=== PATIENT | female | born 1995 | race Caucasian/White ===

== ENCOUNTER 2018-10-05 05:39 | Emergency (ER) | payer OTHER ==
[2018-10-05 06:20] VITALS: TEMP 99.8; O2SAT 97
--- NOTE | 2018-10-05 08:30 | RAD ---
EXAM DESCRIPTION: Chest,2 Views CLINICAL HISTORY: 23 years Female, coughing COMPARISON: None. IMPRESSION: Heart size and pulmonary vascularity are within normal limits. Somewhat limited evaluation due to low inspiratory volumes. There is no confluent airspace consolidation, pleural effusion, or pneumothorax. No acute osseous abnormality. Electronically signed by: Ross Hernandez MD 10/05/2018 8:29 AM CVIR TECH
[2018-10-05] MEDS ORDERED: ONDANSETRON ODT 8 MG TAB SL ONE (08:42)
[2018-10-05] MEDS ORDERED: ACETAMINOPHEN 325 MG TAB PO ONE (08:42)
--- NOTE | 2018-10-05 08:46 | ED.PDOC ---
History of Present Illness - General Chief Complaint: Respiratory Problem Stated Complaint: cough/stuffy nose, rash x's 1 month Time Seen by Provider: 10/05/18 06:37 Source: patient Exam Limitations: no limitations - History of Present Illness Initial Comments: he patient is a 23-year-old female presenting to emergency room secondary to cough for the last few days that is mildly productive. Mild wheezing. She has also had a mild rash in areas that she can scratch for the last 3 weeks. She does have very significant dry skin. No shortness of breath. No overt fever. She does have a mild runny nose. Mild sore throat. She does also have some very fine rails to the left upper lobe primarily. She does have mild scattered rhonchi. Timing/Duration: other Improving Factors: nothing Worsening Factors: nothing Associated Symptoms: cough Allergies/Adverse Reactions: Allergies NO KNOWN ALLERGY Allergy (Verified 10/05/18 06:20) Home Medications: Ambulatory Orders Azithromycin 500 mg PO DAILY #5 tab 10/05/18 predniSONE [Prednisone] 20 mg PO DAILY #5 tab 10/05/18 Review of Systems - Review of Systems Constitutional: States: no symptoms reported EENTM: States: nose congestion, throat pain Respiratory: States: cough Cardiology: States: no symptoms reported Gastrointestinal/Abdominal: States: no symptoms reported Genitourinary: States: no symptoms reported Musculoskeletal: States: no symptoms reported Skin: States: see HPI Neurological: States: no symptoms reported Endocrine: States: no symptoms reported All other Systems: No Change from Baseline Past Medical History (General) - Patient Medical History Hx Seizures: No Hx Stroke: No Hx Dementia: No Hx Asthma: No Hx of COPD: No Hx Cardiac Disorders: No Hx Congestive Heart Failure: No Hx Pacemaker: No Hx Hypertension: No Hx Thyroid Disease: No Hx Diabetes: No Hx Gastroesophageal Reflux: No Hx Renal Disease: No Hx Cancer: No Hx of HIV: No Hx Hepatitis C: No Hx MRSA: No Surgical History: no surgical history - Vaccination History Hx Tetanus, Diphtheria Vaccination: No Hx Influenza Vaccination: No - Social History Hx Tobacco Use: Yes Hx Alcohol Use: Yes Family Medical History - Family History Mother Living Status: Still Living Physical Exam - Physical Exam General Appearance: Alert, Comfortable, No apparent distress Eye Exam: bilateral normal Ears, Nose, Throat: hearing grossly normal, normal pharynx, nasal congestion Neck: full range of motion, supple Respiratory: chest non-tender, no respiratory distress, no accessory muscle use, other - see history of present illness Cardiovascular/Chest: normal peripheral pulses, regular rate, rhythm, no edema Peripheral Pulses: radial,right: 2+, radial,left: 2+ Gastrointestinal/Abdominal: non tender, soft Rectal Exam: deferred Back Exam: normal inspection, no CVA tenderness, no vertebral tenderness Extremity: normal range of motion, non-tender, normal inspection, no pedal kamran ma, normal capillary refill 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 She has small scabbed over areas where she has been scratching. No vesicles or pustules otherwise. No evidence of any purpura. No evidence of any psoriasis at this time. Comments: Vital Signs - 24 hr 10/05/18 05:55 Temperature 99.8 F H Pulse Rate [ 115 H monitor] Respiratory 18 Rate Blood Pressure 122/97 [Left Arm] O2 Sat by Pulse 97 Oximetry Progress - Progress Progress: 10/05/18 08:46 the patient is a 23-year-old female presenting to emergency room with 2 issues. The first appears to be at least moderate bronchitis. For this she is going to be placed on azithromycin for 5 days and prednisone for 5 days. She additionally does have significant dry skin and significant pruritus. She is going to be placed on the prednisone for this as well. She needs to obtain Eucerin cream or Cetaphil cream and apply this copiously to her dry skin 2-3 times daily. This should help. Additionally she can take a Zyrtec each night for the next 2 weeks. She needs to keep herself well hydrated his urine did show some mild dehydration. ER warnings were given for any significant worsening. She needs to try to avoid scratching. She needs to avoid work for at least the next 2 days and she is contagious from the respiratory standpoint. Keep routine follow up with primary care doctor otherwise. - Results/Orders Results/Orders: 10/05/18 07:18 STREP A SCREEN CULTURE Stat 10/05/18 08:43 INFLUENZA A & B BY PCR Stat result is negative GROUP A STREP SCREEN, RAPID Stat result is negative Chest x-ray shows no focal pneumonia. Laboratory Results - last 24 hr 10/05/18 10/05/18 10/05/18 06:47 06:48 07:18 Urine Color Yellow Urine Appearance Cloudy Urine pH 5.5 Ur Specific [place] >= 1.030 Urine Protein Trace Urine Glucose (UA) Negative Urine Ketones Trace Urine Blood Negative Urine Nitrite Negative Urine Bilirubin Negative Urine Urobilinogen 0.2 Ur Leukocyte Esterase Negative Urine RBC 0 Urine WBC 0-1 Ur Epithelial Cells 0-1 Amorphous Sediment 4+ Urine Bacteria 0 Urine Mucus Trace Urine HCG, Qual Negative Group A Strep Rapid Negative Departure - Departure Clinical Impression: Dermatitis, dyshidrotic, Dry skin dermatitis, Mild dehydration Acute bronchitis Qualifiers: Bronchitis organism: unspecified organism Qualified Code(s): J20.9 - Acute bronchitis, unspecified Disposition: Discharge to Home or Self Care Condition: Fair Departure Forms: ED Discharge - Pt. Copy, Patient Portal Self Enrollment Instructions: Eczema (Atopic Dermatitis), Acute Bronchitis, Adult (DC) Diet: regular diet Activity: increase activity as tolerated Prescriptions: Azithromycin 500 mg PO DAILY #5 tab predniSONE [Prednisone] 20 mg PO DAILY #5 tab Home Medications: Ambulatory Orders Azithromycin 500 mg PO DAILY #5 tab 10/05/18 predniSONE [Prednisone] 20 mg PO DAILY #5 tab 10/05/18 Additional Instructions: the patient is a 23-year-old female presenting to emergency room with 2 issues. The first appears to be at least moderate bronchitis. For this she is going to be placed on azithromycin for 5 days and prednisone for 5 days. She additionally does have significant dry skin and significant pruritus. She is going to be placed on the prednisone for this as well. She needs to obtain Eucerin cream or Cetaphil cream and apply this copiously to her dry skin 2-3 times daily. This should help. Additionally she can take a Zyrtec each night for the next 2 weeks. She needs to keep herself well hydrated his urine did show some mild dehydration. ER warnings were given for any significant worsening. She needs to try to avoid scratching. She needs to avoid work for at least the next 2 days and she is contagious from the respiratory standpoint. Keep routine follow up with primary care doctor otherwise.
[2018-10-05 09:03] VITALS: BP 132/65
== END 2018-10-05 09:01 | disposition home or self-care (01) ==
LOC: ER 05:39
DX: J20.9 Acute bronchitis, unspecified (principal); E86.0 Dehydration; L30.1 Dyshidrosis [pompholyx]; L85.3 Xerosis cutis

== ENCOUNTER 2019-02-15 12:34 | Emergency (ER) | payer OTHER ==
[2019-02-15 12:48] VITALS: TEMP 98.8
--- NOTE | 2019-02-15 13:03 | ED.PDOC ---
History of Present Illness - General Chief Complaint: Skin/Abrasion/Tear Stated Complaint: rash Time Seen by Provider: 02/15/19 12:56 Source: patient Exam Limitations: no limitations - History of Present Illness Initial Comments: PT THINKS SHE CAUGHT SCABIES FROM ANOTHER RESIDENT, WHO HAS IT. 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 PRESENT 3 D. PRURITIC. L ANTECUBITAL FOSSA AND L AXILLA. HAD SIMILAR 3 MOS AGO OF ABD, BACK, LEGS, WHICH WERE SUCCESSFULLY TX AND RESOLVED. Timing/Duration: constant Severity: moderate Location: extremities Improving Factors: nothing Worsening Factors: nothing Associated Symptoms: change in skin texture, itching, rash Allergies/Adverse Reactions: Allergies NO KNOWN ALLERGY Allergy (Verified 02/15/19 12:48) Home Medications: Ambulatory Orders Permethrin 5% [Elimite] 60 gm TOP DAILY #1 tube 02/15/19 Review of Systems - Review of Systems Constitutional: States: no symptoms reported EENTM: States: no symptoms reported Respiratory: States: no symptoms reported Cardiology: States: no symptoms reported Gastrointestinal/Abdominal: States: no symptoms reported Genitourinary: States: no symptoms reported Musculoskeletal: States: no symptoms reported Skin: States: see HPI, rash Neurological: States: no symptoms reported Endocrine: States: no symptoms reported Hematologic/Lymphatic: States: no symptoms reported All other Systems: Reviewed and Negative Past Medical History (General) - Patient Medical History Hx Seizures: No Hx Stroke: No Hx Dementia: No Hx Asthma: No Hx of COPD: No Hx Cardiac Disorders: No Hx Congestive Heart Failure: No Hx Pacemaker: No Hx Hypertension: No Hx Thyroid Disease: No Hx Diabetes: No Hx Gastroesophageal Reflux: No Hx Renal Disease: No Hx Cancer: No Hx of HIV: No Hx Hepatitis C: No Hx MRSA: No - Vaccination History Hx Tetanus, Diphtheria Vaccination: No Hx Influenza Vaccination: No - Social History Hx Tobacco Use: Yes Hx Alcohol Use: Yes - daily - Female History Patient is a Female of Child Bearing Age (10 -59 yrs old): Yes Patient : No Family Medical History - Family History Mother Living Status: Still Living Physical Exam - Physical Exam General Appearance: Alert, No apparent distress Eyes, Ears, Nose, Throat Exam: PERRL/EOMI, normal ENT inspection Neck: non-tender, normal inspection Cardiovascular/Chest: regular rate, rhythm, no murmur Respiratory: no respiratory distress, no accessory muscle use Gastrointestinal/Abdominal: non tender, soft Back Exam: normal inspection Extremity: normal range of motion, other - SEE DERM EXAM. Neurologic: no motor/sensory deficits, alert, normal mood/affect Skin Exam: other - L AXILLA AND L ANTECUBITAL FOSSA - NUMEROUS SMALL, DISCRETE, ERYTHEMATOUS CRUSTS, EXCORIATED. POS BURROWS IN SERPIGINOUS LINES Skin Problem Location: upper extremities Skin Character: lesion, rash Lymphatic: no adenopathy Departure - Departure Clinical Impression: Scabies, H/O scabies, Pruritic rash Disposition: Discharge to Home or Self Care Condition: Good Departure Forms: ED Discharge - Pt. Copy, Patient Portal Self Enrollment Instructions: Scabies (DC) Diet: resume usual diet Activity: increase activity as tolerated Prescriptions: Permethrin 5% [Elimite] 60 gm TOP DAILY #1 tube Home Medications: Ambulatory Orders Permethrin 5% [Elimite] 60 gm TOP DAILY #1 tube 02/15/19 Additional Instructions: As discussed, please inform your co-workers and residents to please be seen by for similar skin evaluation and appropriate treatment.
[2019-02-15 13:40] VITALS: BP 112/77; O2SAT 98
== END 2019-02-15 13:40 | disposition home or self-care (01) ==
LOC: ER 12:34
DX: B86 Scabies (principal); Z87.891 Personal history of nicotine dependence